=== PATIENT | female | born 1985 | race Caucasian/White ===

== ENCOUNTER 2021-09-14 10:56 | Outpatient (CLI) | payer BC ==
[2021-09-14 14:43] LABS: Hemoglobin 10.8 g/dL (12.0-15.5); Mean Corpuscular HGB CONC 32.6 g/dL (32.0-36.0); Mean Corpuscular Hemoglobin 30.9 pg (27.0-33.0); Mean Corpuscular Volume 94.6 fl (81.6-98.3); Mean Platelet Volume 12.2 fl (7.4-10.4); Platelet Count 234 10x3/uL (150-450); RBC Distribution Width 15.2 % (11.5-14.5); White Blood Cell (WBC) Count 7.4 10x3/uL (3.5-10.5)
[2021-09-14 15:14] LABS: Hep B Surf Ag Non-Reactive S/CO (NonReactive)
[2021-09-14 15:15] LABS: Syphilis Antibody Nonreactive (Nonreactive); Syphilis Antibody Index 0.02 S/CO (<1.00 Non-Reactive)
[2021-09-14 15:24] LABS: HBSAg Index 0.16 S/CO (0-0.99)
[2021-09-15 00:49] LABS: SARS-CoV-2 PCR by NAA Not Detected (NotDetected)
== END 2021-09-14 10:57 | disposition home or self-care (01) ==
LOC: CSHLAB 10:56
PROVIDERS: ATTEND Obstetrics & Gynecology
DX: Z01.812 Encounter for preprocedural laboratory examination (principal); Z20.822 Contact with and (suspected) exposure to COVID-19
CPT/HCPCS: 85027; 86765; 86780; 86900; 86901; 87340; U0003; U0005

== ENCOUNTER 2021-09-18 10:13 | Inpatient (IN) | payer BC ==
[2021-09-18] MEDS ORDERED: hydrALAZINE 20 MG/ML VIAL SLOW IVP PRN ×2 (10:21→18:35)
[2021-09-18] MEDS ORDERED: Acetaminophen 500 MG TAB PO PRN (10:21)
[2021-09-18] MEDS ORDERED: Bicitra 30 ML UDCUP PO PRN (10:21)
[2021-09-18] MEDS ORDERED: Ondansetron PF 4 MG/2 ML Vial IVP PRN ×3 (10:21→18:35)
[2021-09-18] MEDS ORDERED: Butorphanol Tartrate 1 MG/ML VIAL SLOW IVP PRN (10:21)
[2021-09-18] MEDS ORDERED: Promethazine HCl 25 MG/ML VIAL IM PRN ×3 (10:21→18:35)
[2021-09-18] MEDS ORDERED: Famotidine/PF 20 mg/2ml Vial SLOW IVP PRN (10:21)
[2021-09-18] MEDS ORDERED: ceFAZolin 2 GM/Dextrose 50 ML 2 GM in Premix Bag 1 BAG IVPB SCH (10:30)
[2021-09-18 10:46] VITALS: BMI 32.8
[2021-09-18] MEDS ORDERED: Morphine PF 10 MG/10 ML VIAL ONE (12:00)
[2021-09-18] MEDS ORDERED: ePHEDrine Sulfate 50 MG/10 ML VIAL ONE (12:00)
[2021-09-18] MEDS ORDERED: Phenylephrine 40 MG/NS 250 ML 250 ML ONE (12:01)
[2021-09-18] MEDS ORDERED: Oxytocin 10 UNITS/ML VIAL ONE ×2 (12:01→14:57)
[2021-09-18 12:25] LABS: Hemoglobin 10.1 g/dL (12.0-15.5); Mean Corpuscular HGB CONC 32.8 g/dL (32.0-36.0); Mean Corpuscular Hemoglobin 30.5 pg (27.0-33.0); Mean Corpuscular Volume 93.1 fl (81.6-98.3); Mean Platelet Volume 11.3 fl (7.4-10.4); Platelet Count 191 10x3/uL (150-450); Red Blood Cell (RBC) Count 3.31 10x6/uL (3.90-5.03); White Blood Cell (WBC) Count 7.5 10x3/uL (3.5-10.5)
[2021-09-18 13:19] LABS: Syphilis Antibody Nonreactive (Nonreactive); Syphilis Antibody Index 0.02 S/CO (<1.00 Non-Reactive)
[2021-09-18 13:22] LABS: Hep B Surf Ag Non-Reactive S/CO (NonReactive)
[2021-09-18 13:26] LABS: HBSAg Index 0.18 S/CO (0-0.99)
[2021-09-18] MEDS: Lactated Ringer's 1,000 ML IV SCH ×2 (14:03→19:52)
[2021-09-18] MEDS ORDERED: Dexamethasone 4 mg/ml Vial ONE (14:27)
[2021-09-18] MEDS ORDERED: Ondansetron PF 4 MG/2 ML Vial ONE (14:27)
[2021-09-18] MEDS ORDERED: Meperidine HCl/PF 25 MG/ML VIAL SLOW IVP PRN (16:16)
[2021-09-18] MEDS ORDERED: Promethazine HCl 25 MG SUPP PR PRN (16:16)
[2021-09-18] MEDS ORDERED: Naloxone HCl 0.4 mg/ml Vial IVP PRN ×2 (16:16)
[2021-09-18] MEDS ORDERED: Fentanyl 100 MCG/2 ML VIAL SLOW IVP PRN (16:16)
[2021-09-18] MEDS ORDERED: Ondansetron HCl/PF 4 MG/2 ML Vial IVP PRN (16:16)
[2021-09-18] MEDS ORDERED: Hydrocerin (Eucerin) Cream 120 gm Jar TOP PRN (16:16)
[2021-09-18] MEDS ORDERED: diphenhydrAMINE 50 MG/ML VIAL IVP PRN (16:16)
[2021-09-18] MEDS ORDERED: Naloxone HCl 0.4 mg/ml Vial IV PRN (16:16)
[2021-09-18] MEDS ORDERED: L&D-Morphine 4 MG/ML VIAL SLOW IVP PRN (16:16)
[2021-09-18] MEDS ORDERED: Communication Order-Pharmacy FS SCH (16:30)
[2021-09-18] MEDS ORDERED: Ketorolac Tromethamine 30 MG/ML VIAL IVP SCH (16:30)
[2021-09-18] MEDS ORDERED: Meperidine HCl/PF 25 MG/ML VIAL ONE (16:50)
[2021-09-18] MEDS ORDERED: Boostrix 0.5 ML (Tdap) VIAL IM ONE (18:35)
[2021-09-18] MEDS ORDERED: Bisacodyl 10 MG SUPP PR PRN (18:35)
[2021-09-18] MEDS ORDERED: diphenhydrAMINE 25 MG CAP PO PRN (18:35)
[2021-09-18] MEDS ORDERED: Misoprostol 200 MCG TAB PR PRN (18:35)
[2021-09-18] MEDS ORDERED: Simethicone Chewable 80 MG TAB PO PRN (18:35)
[2021-09-18] MEDS ORDERED: Lanolin Ointment 7 GM TUBE TOP PRN (18:35)
[2021-09-18] MEDS ORDERED: NS w/ Oxytocin 30 units 500 ML IV SCH (18:35)
[2021-09-18] MEDS ORDERED: Methylergonovine 0.2 MG/ML VIAL IM PRN (18:35)
[2021-09-18] MEDS: Ketorolac Tromethamine 30 MG/ML VIAL IVP PRN (19:01)
[2021-09-18] MEDS: Docusate 100 MG CAP PO SCH (21:01)
[2021-09-19] MEDS: Ketorolac Tromethamine 30 MG/ML VIAL IVP PRN ×2 (01:18→08:47)
[2021-09-19 04:14] LABS: Hemoglobin 9.6 g/dL (12.0-15.5); Mean Corpuscular HGB CONC 33.2 g/dL (32.0-36.0); Mean Corpuscular Volume 93.2 fl (81.6-98.3); Mean Platelet Volume 11.1 fl (7.4-10.4); Platelet Count 184 10x3/uL (150-450); RBC Distribution Width 14.7 % (11.5-14.5); White Blood Cell (WBC) Count 9.2 10x3/uL (3.5-10.5)
[2021-09-19] MEDS ORDERED: HYDROcodone/Acetaminophen 5/325 mg Tablet PO PRN (04:30)
[2021-09-19] MEDS ORDERED: Zolpidem Tartrate 5 MG TAB PO PRN (04:30)
[2021-09-19] MEDS: Prenatal Vitamin 1 TAB PO SCH (08:44)
[2021-09-19] MEDS: Docusate 100 MG CAP PO SCH ×2 (08:44→21:21)
[2021-09-19] MEDS: HYDROcodone/Acetaminophen 5/325 mg Tablet PO PRN (16:15)
[2021-09-19] MEDS ORDERED: Measles/Mumps/Rubella 10 MCG/0.5 ML VIAL SC ONE (18:35)
[2021-09-19] MEDS ORDERED: Varicella virus, LIVE 0.5 ML VIAL SC ONE (18:35)
[2021-09-19] MEDS: Ibuprofen 800 MG TAB PO SCH (21:21)
[2021-09-20] MEDS: Ibuprofen 800 MG TAB PO SCH (05:50)
[2021-09-20] MEDS: Docusate 100 MG CAP PO SCH (07:57)
[2021-09-20] MEDS: Prenatal Vitamin 1 TAB PO SCH (07:57)
[2021-09-20] MEDS: HYDROcodone/Acetaminophen 5/325 mg Tablet PO PRN (10:13)
[2021-09-20 11:31] VITALS: BP 112/65; TEMP 98.8
== END 2021-09-20 12:15 | disposition home or self-care (01) | DRG 788 ==
LOC: CSHLD 10:13 → CSHPP 18:10
PROVIDERS: ADMIT Obstetrics & Gynecology; ATTEND Obstetrics & Gynecology
PROC: 10D00Z1 Extraction of Products of Conception, Low, Open Approach (ICD-10-PCS; principal; 2021-09-18)
DX: O34.211 Maternal care for low transverse scar from previous cesarean delivery (principal); Z37.0 Single live birth; Z3A.39 39 weeks gestation of pregnancy
CPT/HCPCS: 36415; 85027; 86780; 86850; 86900; 86901; 87340; J0690; J1100; J1200; J1885; J2175; J2274; J2405; J2590; J7120

== ENCOUNTER 2022-09-19 11:30 | Emergency (ER) | payer BC ==
[2022-09-19 12:34] LABS: Bilirubin Neg (Negative); Blood, Urine Negative (Negative); Glucose, Urine (Dipstick) Normal (Negative); Ketone, Urine Negative (Negative); Leukocyte Negative (Negative); Nitrite Negative (Negative); Protein, Urine (Dipstick) 15 mg/dl (Neg-Trace); Urobilinogen Normal mg/dL (Less than 2)
[2022-09-19 12:36] LABS: Clarity Hazy (Clear)
[2022-09-19] MEDS ORDERED: Metoclopramide HCl 10 MG/2 ML VIAL ONE (12:46)
[2022-09-19 12:51] LABS: #Monocytes 0.6 10x3/uL (0.0-1.1); #Neutrophils 8.5 10x3/uL (1.5-8.4); %Basophils 0.3 % (0.0-2.0); %Eosinophils 0.3 % (0.0-6.0); %Lymphocytes 19.7 % (18.0-47.0); %Monocytes 5.3 % (0.0-10.0); %Neutrophils 74.1 % (40.0-75.0); Hemoglobin 11.9 g/dL (12.0-15.5); Mean Corpuscular HGB CONC 33.6 g/dL (32.0-36.0); Mean Corpuscular Hemoglobin 30.3 pg (27.0-33.0); Mean Corpuscular Volume 90.1 fl (81.6-98.3); Mean Platelet Volume 10.1 fl (7.4-10.4); Platelet Count 324 10x3/uL (150-450); RBC Distribution Width 12.5 % (11.5-14.5); Red Blood Cell (RBC) Count 3.93 10x6/uL (3.90-5.03); White Blood Cell (WBC) Count 11.5 10x3/uL (3.5-10.5)
[2022-09-19 13:12] LABS: ALT (SGPT) 19 U/L (8-55); AST (SGOT) 16 U/L (5-34); Albumin 4.1 g/dL (3.5-5.0); Alkaline Phosphatase 44 U/L (40-110); Anion Gap 11 mmol/L (10-20); BUN (Urea Nitrogen) 14 mg/dL (7.0-18.7); Bilirubin, Total 0.3 mg/dL (0.2-1.2); Calc. Creatinine Clearance 0 mL/min (70-130); Calcium 9.4 mg/dL (7.8-10.44); Carbon Dioxide 24 mmol/L (22-29); Chloride 103 mmol/L (98-107); Estimated GFR 117; Glucose 86 mg/dL (70-105); Potassium 4.4 mmol/L (3.5-5.1); Protein, Total 7.1 g/dL (6.0-8.3); Sodium 134 mmol/L (136-145)
== END 2022-09-19 15:20 | disposition home or self-care (01) ==
LOC: CSHERS 11:30
DX: O21.9 Vomiting of pregnancy, unspecified (principal); Z3A.01 Less than 8 weeks gestation of pregnancy
CPT/HCPCS: 76815; 80053; 81003; 84702; 85025; 96365; 96366; J2765